=== PATIENT | male | born 2000 | race Caucasian/White ===

== ENCOUNTER 2023-12-10 16:38 | Emergency (ER) | payer SELFPAY ==
[2023-12-10 17:10] VITALS: BP 164/95; PULSE 104; RESP 18; TEMP 99.5; BMI 28.8
[2023-12-10] MEDS ORDERED: DIPHTH,PERTUSS(ACELL),TET 0.5 ML DISP.SYRIN IM ONE (17:23)
[2023-12-10] MEDS: DIPHTH,PERTUSS(ACELL),TET 0.5 ML DISP.SYRIN IM ONE (17:23)
== END 2023-12-10 18:04 | disposition home or self-care (01) ==
LOC: FER 16:38
PROC: 3E0234Z Introduction of Serum, Toxoid and Vaccine into Muscle, Percutaneous Approach (ICD-10-PCS; principal; 2023-12-10)
DX: T15.92XA Foreign body on external eye, part unspecified, left eye, initial encounter (principal); Z23 Encounter for immunization
CPT/HCPCS: 90471; 90715; 99282-25